=== PATIENT | female | born 1960 | race African-American/Black ===

== ENCOUNTER 2017-12-12 14:26 | Emergency (ER) | payer OTHER ==
[~2017-12-12] VITALS: Ht 170.2 cm; Wt 124.0 kg
[2017-12-12] MEDS ORDERED: KETOROLAC 60MG/2ML VIAL IM ONE (15:30)
[2017-12-12 17:00] VITALS: BP 202/101
[2017-12-12] MEDS ORDERED: CLONIDINE 0.2MG TABLET PO ONE (17:30)
== END 2017-12-12 18:07 | disposition home or self-care (01) ==
LOC: ER 14:26
DX: S20.212A Contusion of left front wall of thorax, initial encounter (principal); M25.532 Pain in left wrist; E11.9 Type 2 diabetes mellitus without complications; E78.00 Pure hypercholesterolemia, unspecified; I10 Essential (primary) hypertension; W19.XXXA Unspecified fall, initial encounter; Y93.89 Activity, other specified; Y92.89 Other specified places as the place of occurrence of the external cause; Y99.8 Other external cause status
CPT/HCPCS: 71101; 96372; 99284; J1885

== ENCOUNTER 2018-02-09 14:47 | Inpatient (IN) | payer MEDICAID, OTHER ==
[~2018-02-09] VITALS: Ht 172.7 cm; Wt 129.7 kg
[2018-02-09] MEDS ORDERED: ALBUTEROL (0.083%) 2.5MG/3ML NEB HHN STA (15:11)
[2018-02-09] MEDS ORDERED: METOPROLOL TARTRATE 25MG TABLET PO ONE (16:15)
[2018-02-09 16:27] LABS: BASOPHILS % 0.7 % (0.0-2.0); HEMOGLOBIN. 12.9 g/dL (12.0-16.0); LYMPHOCYTES % 21.8 % (20.0-50.0); MEAN CORPUSCULAR HEMOGLOBIN 27.5 pg (28.0-32.0); MEAN CORPUSCULAR VOLUME 83.3 fL (81.0-99.0); MEAN PLATELET VOLUME 9.1 fl (7.4-10.4); NEUTROPHILS % 70.5 % (40.0-76.0); PLATELET 324 x1000/uL (130-400); RED BLOOD CELL COUNT 4.68 mill/uL (4.2-5.4); RED CELL DISTRIBUTION WIDTH 14.4 % (11.6-14.6)
[2018-02-09 16:33] LABS: CHLORIDE 103 mEq/L (98-107)
[2018-02-09 16:34] LABS: PARTIAL THROMBOPLASTIN TIME 24.9 sec (23.4-31.0); PROTHROMBIN TIME 9.8 sec (9.1-11.1)
[2018-02-09] MEDS ORDERED: NITROGLYCERIN 0.4MG TABLET SL SL ONE (17:15)
[2018-02-09] MEDS ORDERED: ACETAMINOPHEN 325MG TABLET PO ONE (17:15)
[2018-02-09] MEDS ORDERED: ACETAMINOPHEN 325MG TABLET PO PRN (18:15)
[2018-02-09] MEDS ORDERED: HYDROCODONE/ACETAMINOPHEN 5/325MG TABLET PO PRN (18:15)
[2018-02-09] MEDS ORDERED: ONDANSETRON HCL 4MG/2ML INJ IV PRN (18:15)
[2018-02-09] MEDS ORDERED: IPRATROPIUM/ALBUTEROL 0.5-3(2.5)MG/3ML NEB INH PRN (18:15)
[2018-02-09] MEDS ORDERED: MAGNESIUM/ALUMINUM HYDROXIDE/SIMETHICONE 30ML UDC PO PRN (18:15)
[2018-02-09] MEDS ORDERED: DOCUSATE SODIUM 100MG CAPSULE PO PRN (18:15)
[2018-02-09] MEDS: CLONIDINE 0.1MG TABLET PO PRN (19:49)
[2018-02-09] MEDS ORDERED: DEXTROSE 50% WATER 50ML SYRINGE IV PRN (20:30)
[2018-02-09 20:40] VITALS: BP 173/94
[2018-02-09 20:43] LABS: CLARITY URINE CLEAR (CLEAR); COLOR URINE YELLOW (YELLOW); KETONES URINE TRACE (NEGATIVE); LEUKOCYTE ESTERASE URINE NEGATIVE (NEGATIVE); NITRITE URINE NEGATIVE (NEGATIVE); OCCULT BLOOD URINE NEGATIVE (NEGATIVE); PH URINE 5.5 (4.5-8.0); PROTEIN URINE 3+ (NEGATIVE); SPECIFIC GRAVITY URINE 1.037 (1.005-1.030); UROBILINOGEN URINE 0.2 E.U./dL (0.2-1.0)
[2018-02-09 20:55] LABS: *AMPHETAMINES SCREEN URINE NEGATIVE (NEGATIVE); *BARBITURATES SCREEN URINE NEGATIVE (NEGATIVE); *BENZODIAZEPINES SCREEN URINE NEGATIVE (NEGATIVE); *COCAINE SCREEN URINE NEGATIVE (NEGATIVE)
[2018-02-09 20:56] LABS: CANNABINOID URINE SCREEN NEGATIVE (NEGATIVE); METHADONE URINE SCREEN NEGATIVE (NEGATIVE); OPIATES URINE SCREEN NEGATIVE (NEGATIVE); PHENCYCLIDINE URINE SCREEN NEGATIVE (NEGATIVE)
[2018-02-09 21:00] VITALS: BP 173/94
[2018-02-09] MEDS ORDERED: LISINOPRIL 10MG TABLET PO SCH (21:00)
[2018-02-09] MEDS: FUROSEMIDE 20MG/2ML VIAL IVP SCH (21:42)
[2018-02-09] MEDS: BLOOD SUGAR DIAGNOSTIC STRIP TEST SCH (21:43)
[2018-02-09] MEDS: ENOXAPARIN 40MG/0.4ML SYR SUBCUT SCH (21:43)
[2018-02-09] MEDS: INSULIN LISPRO 100 UNITS/ML SUBCUT SCH (22:00)
[2018-02-09] MEDS ORDERED: INSULIN GLARGINE UD 100 UNITS/ML SYR SUBCUT SCH (22:00)
[2018-02-09 23:20] LABS: CREATINE KINASE 56 IU/L (26-192)
[2018-02-09 23:21] LABS: CREATINE KINASE MB FRACTION < 1.0 ng/mL (0.5-3.6)
[2018-02-10] VITALS: BP 146/76
[2018-02-10] MEDS ORDERED: AMLO10TA80 PO (02:14)
[2018-02-10] MEDS ORDERED: METF-414 PO (02:14)
[2018-02-10] MEDS ORDERED: METO25TA6 PO (02:14)
[2018-02-10] MEDS ORDERED: PRAV40TA58 PO (02:14)
[2018-02-10] MEDS ORDERED: GLIP10TA10 PO (02:17)
[2018-02-10] MEDS ORDERED: CLON0.2T PO (02:17)
[2018-02-10] MEDS ORDERED: LOSA100T14 PO (02:17)
[2018-02-10] MEDS ORDERED: ASPI-1158 PO (02:17)
[2018-02-10 04:00] VITALS: BP 158/88
[2018-02-10] MEDS: BLOOD SUGAR DIAGNOSTIC STRIP TEST SCH ×4 (06:21→21:14)
[2018-02-10 07:43] LABS: CHLORIDE 103 mEq/L (98-107)
[2018-02-10 07:48] LABS: BASOPHILS % 0.6 % (0.0-2.0); EOSINOPHILS % 2.8 % (0.0-5.0); HEMOGLOBIN. 12.3 g/dL (12.0-16.0); LYMPHOCYTES % 35.1 % (20.0-50.0); MEAN CORPUSCULAR HEMOGLOBIN 27.6 pg (28.0-32.0); MEAN CORPUSCULAR VOLUME 82.9 fL (81.0-99.0); MEAN PLATELET VOLUME 9.1 fl (7.4-10.4); MONOCYTES % 6.5 % (2.0-8.0); PLATELET 300 x1000/uL (130-400); RED BLOOD CELL COUNT 4.46 mill/uL (4.2-5.4); RED CELL DISTRIBUTION WIDTH 14.5 % (11.6-14.6)
[2018-02-10] MEDS: INSULIN LISPRO 100 UNITS/ML SUBCUT SCH ×4 (07:50→21:26)
[2018-02-10 07:52] LABS: LDL CHOLESTEROL 115 mg/dL (5-100)
[2018-02-10 07:53] LABS: CREATINE KINASE 58 IU/L (26-192)
[2018-02-10 07:56] LABS: HDL CHOLESTEROL 55 mg/dL (40-59)
[2018-02-10 07:57] LABS: CREATINE KINASE MB FRACTION < 1.0 ng/mL (0.5-3.6)
[2018-02-10 08:00] VITALS: BP 181/87
[2018-02-10] MEDS: FUROSEMIDE 20MG/2ML VIAL IVP SCH ×2 (10:05→23:32)
[2018-02-10] MEDS: ASPIRIN 81MG EC TABLET PO SCH (10:06)
[2018-02-10] MEDS: ENOXAPARIN 40MG/0.4ML SYR SUBCUT SCH ×2 (10:07→21:13)
[2018-02-10] MEDS ORDERED: REGADENOSON 0.4 MG/5 ML IV NR (11:30)
[2018-02-10] MEDS: INSULIN GLARGINE UD 100 UNITS/ML SYR SUBCUT SCH ×2 (13:30→23:32)
[2018-02-10] MEDS: METOPROLOL TARTRATE 25MG TABLET PO SCH (13:32)
[2018-02-10] MEDS: LOSARTAN POTASSIUM 50 MG TABLET PO SCH ×2 (13:33→21:14)
[2018-02-10] MEDS: CLONIDINE 0.1MG TABLET PO SCH ×2 (13:33→17:07)
[2018-02-10] MEDS: AMLODIPINE 5MG TABLET PO SCH ×2 (13:33→21:14)
[2018-02-10 20:00] VITALS: BP 154/73
[2018-02-10] MEDS: FAMOTIDINE 20MG/2ML VIAL IV SCH (21:25)
[2018-02-11] VITALS (7 sets, daily range): BP systolic 144–177; BP diastolic 75–93
[2018-02-11] MEDS: CLONIDINE 0.1MG TABLET PO PRN ×2 (00:55→06:52)
[2018-02-11] MEDS: BLOOD SUGAR DIAGNOSTIC STRIP TEST SCH ×4 (06:29→20:56)
[2018-02-11 06:38] LABS: BASOPHILS % 0.8 % (0.0-2.0); EOSINOPHILS % 3.3 % (0.0-5.0); HEMATOCRIT. 38.4 % (36.0-48.0); HEMOGLOBIN. 12.8 g/dL (12.0-16.0); LYMPHOCYTES % 34.5 % (20.0-50.0); MEAN CORPUSCULAR HEMOGLOBIN 27.6 pg (28.0-32.0); MEAN CORPUSCULAR VOLUME 82.7 fL (81.0-99.0); MEAN PLATELET VOLUME 9.3 fl (7.4-10.4); MONOCYTES % 6.8 % (2.0-8.0); NEUTROPHILS % 54.6 % (40.0-76.0); PLATELET 310 x1000/uL (130-400); RED BLOOD CELL COUNT 4.64 mill/uL (4.2-5.4); RED CELL DISTRIBUTION WIDTH 14.3 % (11.6-14.6)
[2018-02-11 06:54] LABS: CHLORIDE 105 mEq/L (98-107)
[2018-02-11] MEDS ORDERED: GLIPIZIDE 5MG TABLET PO SCH ×2 (07:20→17:20)
[2018-02-11] MEDS: INSULIN LISPRO 100 UNITS/ML SUBCUT SCH ×4 (07:50→21:19)
[2018-02-11] MEDS ORDERED: REGADENOSON 0.4 MG/5 ML IV ONE (08:52)
[2018-02-11] MEDS ORDERED: LISINOPRIL 40MG TABLET PO SCH (09:00)
[2018-02-11] MEDS: FUROSEMIDE 20MG/2ML VIAL IVP SCH ×2 (09:00→21:00)
[2018-02-11] MEDS: ENOXAPARIN 40MG/0.4ML SYR SUBCUT SCH ×2 (09:00→21:16)
[2018-02-11] MEDS: AMLODIPINE 5MG TABLET PO SCH ×2 (10:44→21:16)
[2018-02-11] MEDS: ASPIRIN 81MG EC TABLET PO SCH (10:44)
[2018-02-11] MEDS: LOSARTAN POTASSIUM 50 MG TABLET PO SCH ×2 (10:44→21:16)
[2018-02-11] MEDS: METOPROLOL TARTRATE 25MG TABLET PO SCH (10:45)
[2018-02-11] MEDS: FAMOTIDINE 20MG/2ML VIAL IV SCH ×2 (10:46→21:16)
[2018-02-11] MEDS: CLONIDINE 0.2MG TABLET PO SCH ×3 (10:46→17:55)
[2018-02-11] MEDS: INSULIN GLARGINE UD 100 UNITS/ML SYR SUBCUT SCH ×2 (10:57→21:20)
[2018-02-11] MEDS: HYDRALAZINE HCL 50MG TABLET PO SCH ×2 (13:06→21:17)
[2018-02-11] MEDS: METFORMIN HCL 500MG TABLET PO SCH (17:55)
[2018-02-11] MEDS: CARVEDILOL 12.5MG TABLET PO SCH (21:17)
[2018-02-12] VITALS: BP 152/68
[2018-02-12 04:00] VITALS: BP 139/76
[2018-02-12] MEDS: HYDRALAZINE HCL 50MG TABLET PO SCH (06:15)
[2018-02-12] MEDS: BLOOD SUGAR DIAGNOSTIC STRIP TEST SCH (06:17)
[2018-02-12] MEDS: INSULIN LISPRO 100 UNITS/ML SUBCUT SCH (07:20)
[2018-02-12] MEDS ORDERED: GLIPIZIDE 5MG TABLET PO SCH (07:20)
[2018-02-12 08:00] VITALS: BP 156/77
[2018-02-12] MEDS: ASPIRIN 81MG EC TABLET PO SCH (08:29)
[2018-02-12] MEDS: CARVEDILOL 12.5MG TABLET PO SCH (08:32)
[2018-02-12] MEDS: AMLODIPINE 5MG TABLET PO SCH (08:32)
[2018-02-12] MEDS: CLONIDINE 0.2MG TABLET PO SCH (08:33)
[2018-02-12] MEDS: LOSARTAN POTASSIUM 50 MG TABLET PO SCH (08:33)
[2018-02-12] MEDS: METFORMIN HCL 500MG TABLET PO SCH (08:33)
[2018-02-12] MEDS: FUROSEMIDE 20MG/2ML VIAL IVP SCH (08:34)
[2018-02-12] MEDS: FAMOTIDINE 20MG/2ML VIAL IV SCH (08:34)
[2018-02-12] MEDS: ENOXAPARIN 40MG/0.4ML SYR SUBCUT SCH (08:35)
[2018-02-12] MEDS: INSULIN GLARGINE UD 100 UNITS/ML SYR SUBCUT SCH (11:18)
[2018-02-12 11:33] VITALS: BP 156/77
== END 2018-02-12 15:00 | disposition home or self-care (01) | DRG 194 ==
LOC: ER 15:00 → 6WST 17:01 → ENRESERV 19:52
PROVIDERS: ADMIT Internal Medicine; ATTEND Internal Medicine
DX: I11.0 Hypertensive heart disease with heart failure (principal); E44.0 Moderate protein-calorie malnutrition; E66.01 Morbid (severe) obesity due to excess calories; I42.9 Cardiomyopathy, unspecified; E11.65 Type 2 diabetes mellitus with hyperglycemia; R06.03 Acute respiratory distress; M94.0 Chondrocostal junction syndrome [Tietze]; I50.23 Acute on chronic systolic (congestive) heart failure; E78.5 Hyperlipidemia, unspecified; K21.9 Gastro-esophageal reflux disease without esophagitis; E78.00 Pure hypercholesterolemia, unspecified; Z82.49 Family history of ischemic heart disease and other diseases of the circulatory system; Z68.41 Body mass index [BMI] 40.0-44.9, adult; Z91.19 Patient's noncompliance with other medical treatment and regimen; Z79.899 Other long term (current) drug therapy; Z79.82 Long term (current) use of aspirin
CPT/HCPCS: 36415; 71045; 78452; 80048; 80061; 80305; 82550; 82553; 82962; 83036; 83735; 83880; 84439; 84443; 84484; 85379; 93005; 93017; 93306; 93970; 99285; A9500; J1650; J1815; J1940; J2785; J3490; J7611; J7620